=== PATIENT | female | born 1945 | race Caucasian/White ===

== ENCOUNTER 2018-01-25 07:26 | Emergency (ER) | payer OTHER ==
[~2018-01-25] VITALS: Ht 152.4 cm; Wt 73.9 kg
[~2018-01-25 07:26] MED LIST: ASPIR 8181 MG PO; CALCIUM PO; CIPROFLOXACIN 0.2% OT; COZAAR100 MG PO; COZAAR50 MG PO; FUROSEMIDE20 MG PO; HYDRALAZINE HY100 MG PO; HYDRALAZINE HYD50 MG PO; K10 PO; KEFLEX500 MG PO; KLOR-CON M2020 MEQ PO; LASIX20 MG PO; LEVOTHYROXIN0.025 M2 PO; MAGNE PO; METOPROLOL SUCC50 M2 PO; OMEPRAZOLE40 M1 PO; SIMVASTATIN20 M1 PO; SYNTHROID0.112 MG PO; TOP50 PO; VITAMIN B121000 MCG PO; ZOLOFT25 MG PO
[2018-01-25 07:30] VITALS: Ht 152.4 cm; Wt 73.9 kg
[2018-01-25 09:24] VITALS: BP 193/74
== END 2018-01-25 09:24 | disposition home or self-care (01) ==
LOC: ED 07:26
DX: R51 Headache (principal); I11.0 Hypertensive heart disease with heart failure; I50.9 Heart failure, unspecified; Z86.73 Personal history of transient ischemic attack (TIA), and cerebral infarction without residual deficits
CPT/HCPCS: J0780; J1885

== ENCOUNTER 2018-04-11 16:02 | Emergency (ER) | payer OTHER ==
[~2018-04-11] VITALS: Ht 152.4 cm; Wt 71.2 kg
[2018-04-11 16:07] VITALS: BP 176/108; Ht 152.4 cm; Wt 71.2 kg
== END 2018-04-11 16:52 | disposition home or self-care (01) ==
LOC: ED 16:02
DX: K04.7 Periapical abscess without sinus (principal); I11.0 Hypertensive heart disease with heart failure; I50.9 Heart failure, unspecified; Z86.73 Personal history of transient ischemic attack (TIA), and cerebral infarction without residual deficits; Z98.61 Coronary angioplasty status; Z98.890 Other specified postprocedural states

== ENCOUNTER 2018-12-23 09:44 | Emergency (ER) | payer OTHER ==
[~2018-12-23] VITALS: Ht 152.4 cm; Wt 74.1 kg
[2018-12-23 09:47] VITALS: Ht 152.4 cm; Wt 74.1 kg
[2018-12-23 11:13] VITALS: BP 189/94
== END 2018-12-23 11:28 | disposition home or self-care (01) ==
LOC: ED 09:44
DX: M25.561 Pain in right knee (principal); I50.9 Heart failure, unspecified; I11.0 Hypertensive heart disease with heart failure
CPT/HCPCS: J1885

== ENCOUNTER 2018-12-25 09:25 | Emergency (ER) | payer OTHER ==
[~2018-12-25] VITALS: Ht 152.4 cm; Wt 73.5 kg
[2018-12-25 09:32] VITALS: Ht 152.4 cm; Wt 73.5 kg
[2018-12-25 11:58] VITALS: BP 155/79
== END 2018-12-25 11:59 | disposition home or self-care (01) ==
LOC: ED 09:25
DX: M25.561 Pain in right knee (principal); I11.0 Hypertensive heart disease with heart failure; I50.9 Heart failure, unspecified; Z86.73 Personal history of transient ischemic attack (TIA), and cerebral infarction without residual deficits; Z98.890 Other specified postprocedural states

== ENCOUNTER 2019-01-24 13:53 | Inpatient (IN) | payer OTHER ==
[~2019-01-24] VITALS: Ht 152.4 cm; Wt 71.2 kg
[~2019-01-24 13:53] MED LIST changes: -HYDRALAZINE HYD50 MG PO
[2019-01-24 14:00] VITALS: Ht 152.4 cm; Wt 71.2 kg
--- NOTE | 2019-01-24 14:23 | NUR ---
PT BROUGHT IN BY [facility] FOR COMPLAINT OF GENERALIZED WEAKNESS AND DECREASED APPEITITE. PT HAD FALL APPROX 1 MO AGO RESULTING IN HUMERUS HEAD FX OF R SIDE. PT WAS SENT TO [facility] FOR APPROX 23 DAYS. PER PT. REHAB "[place]" STATES BP WAS ELEVATED WHILE IN REHAB AND PT WAS GIVEN A "COCKTAIL OF DRUGS" PT WAS DC'D FROM [facility] 3 DAYS AGO. STATES PT HAS NOT WANTED TO EAT OR DRINK. "SHE WILL ONLY EAT A SLICE OF FRUIT AND THATS NOT ENOUGH CALORIES" PT REFUSES MOST FOOD AND WATER. PT HAS ALSO BECOME MORE WEAK. SURGERY WAS NOT REQUIRED AT FX SITE. PT CURRENLTY AWAKE AND ALERT. BREATHING EVEN UNLABORED. NON AMBULATORY AT THIS TIME. PT PLACED ON CM. IV STARTED TO L HAND. AT BEDSIDE. CONTINUE TO MONITOR.
[2019-01-24 15:19] LABS: BASOPHIL % 0.7 % (0-2); PLATELET COUNT 256 x10^3mcL (130-400); RED CELL DISTRIBUTION WIDTH 14.3 % (11.5-14.5)
[2019-01-24 15:51] LABS: ALBUMIN 3.9 g/dL (3.4-5.0); ALKALINE PHOSPHATASE 122 U/L (46-116); ALT/SGPT 28 U/L (14-59); AST/SGOT 21 U/L (15-37); BILIRUBIN TOTAL 0.5 mg/dL (0.20-1.00); CALCIUM 9.5 mg/dL (8.5-10.1); CARBON DIOXIDE 16.9 mmol/L (21-32); CHLORIDE SERUM 101 mmol/L (98-107); GLUCOSE SERUM 124 mg/dL (74-106); MAGNESIUM 3.2 mg/dL (1.8-2.4); POTASSIUM SERUM 5.3 mmol/L (3.5-5.1); SODIUM SERUM 134 mmol/L (136-145)
[2019-01-24 15:55] LABS: CHOLESTEROL 358 mg/dL (<200); CREATININE SERUM 4.3 mg/dL (0.6-1.0); HDL CHOLESTEROL 31 mg/dL (40-60); TOTAL PROTEIN, SERUM 8.5 g/dL (6.4-8.2)
--- NOTE | 2019-01-24 16:21 | NUR ---
RESTING COMFORTABLY ON GURNEY .BREATHING EVEN UNLABORED. NO DISTRESS. PT WAS ABLE TO EAT SINGLE CONTAINER OF VANILLA PUDDING ASSISTED BY . AWAKE AND ALERT AND ORIENTED.
[2019-01-24 16:35] LABS: microscopic required? YES; urine erythrocyte 1+ (NEGATIVE)
[2019-01-24] MEDS ORDERED: PANTOPRAZOLE SO40 M1 PO (17:05)
[2019-01-24] MEDS ORDERED: MOM PO (17:06)
[2019-01-24] MEDS ORDERED: METOPROLOL SUCC50 M2 PO (17:06)
[2019-01-24] MEDS ORDERED: MAXZIDE-251 TAB PO (17:06)
[2019-01-24] MEDS ORDERED: LOV40I SQ (17:07)
[2019-01-24] MEDS ORDERED: ZOLOFT25 MG PO (17:07)
[2019-01-24] MEDS ORDERED: FERROUS SULFAT325 M2 PO (17:07)
[2019-01-24] MEDS ORDERED: ASPIR LOW81 MG PO (17:07)
[2019-01-24] MEDS ORDERED: COZAAR100 MG PO (17:07)
[2019-01-24] MEDS ORDERED: CATAPRES0.1 MG PO (17:08)
[2019-01-24] MEDS ORDERED: ZOF4 PO (17:08)
--- NOTE | 2019-01-24 18:16 | NUR ---
RECEIVED PATIENT FROM ED VIA [facility] ACCOMPANIED BY EMT AND ALEXANDRA. PATIENT IS A/O X4, TRANSFERED FROM RMAPLE SHADE TO BED AND MADE COMFORTABLE. IV TO LH INTACT AND PATENT. PATIENT HAS HX OF FALL 1 MONTH AGO WITH RIGHT HUMERAL NECK FRACTURE, RUE IN SLING. PATIENT DENIES ANY PAIN. VSS. PATIENT AND ORIENTED TO ROOM. INSTRUTED TO CALL FOR ASSISTANCE IF NEEDED. SAFETY PRECAUTIONS MAINTAINED. WILL ENDORSE CARE TO ONCOMING NURSE.
[2019-01-24 18:33] VITALS: BP 124/97
--- NOTE | 2019-01-24 19:27 | NUR ---
REPORT GIVEN TO STERLING GOODWIN, ALL QUESTIONS AND CONCERNS ADDRESSE, ALL CARES ENDORSED.
--- NOTE | 2019-01-24 19:50 | NUR ---
RECEIVED REPORT FROM DAY SHIFT RN. PT RESTING IN BED. AA&O X4. NO SOB ON ROOM AIR. NO C/O PAIN. NO DISTRESS NOTED. IV TO LEFT HAND, INTACT. RIGHT ARM SLING NOTED. SAFETY MEASURES IN PLACE. BED IN LOWEST POSITION. SIDE RAILS UP X2. INSTRUCTED PT TO USE THE CALL LIGHT FOR ASSISTANCE. CALL LIGHT WITHIN REACH.
[2019-01-24 20:57] VITALS: BP 176/64
--- NOTE | 2019-01-24 22:51 | NUR ---
PT DC TO HOME. PICKED UP BY FAMILY. NO SOB ON ROOM AIR. NO C/O CHEST PAIN. NO DISTRESS NOTED. TELE#1 REMOVED AND RETURNED TO HUMAN RESOURCES DIRECTOR. DC IV, CATHETER INTACT. NO BLEEDING. DISCHARGE PAPER/INSTRUCTIONS EXPLAINED AND GIVEN TO PT.
--- NOTE | 2019-01-24 22:58 | NUR ---
BP 186/53 HR 36; K 5.3; PHOS 7.0. REPORTED TO DR MEDINA. NEW ORDERS: VASOTEC, DC METOPROLOL, CHANGE FROM MED SURG TO TELE, AM LABS (CBC, CHEM7, MG, PHOS).
[2019-01-25 05:46] VITALS: BP 136/53
[2019-01-25 06:23] LABS: BASOPHIL % 0.3 % (0-2); PLATELET COUNT 200 x10^3mcL (130-400); RED CELL DISTRIBUTION WIDTH 14.2 % (11.5-14.5)
[2019-01-25 06:47] LABS: ALBUMIN 3.4 g/dL (3.4-5.0); ALKALINE PHOSPHATASE 111 U/L (46-116); ALT/SGPT 20 U/L (14-59); AST/SGOT 19 U/L (15-37); BILIRUBIN TOTAL 0.49 mg/dL (0.20-1.00); CALCIUM 8.9 mg/dL (8.5-10.1); CARBON DIOXIDE 16.3 mmol/L (21-32); CHLORIDE SERUM 108 mmol/L (98-107); CREATININE SERUM 3.3 mg/dL (0.6-1.0); GLUCOSE SERUM 91 mg/dL (74-106); MAGNESIUM 2.4 mg/dL (1.8-2.4); PHOSPHOROUS 5.5 mg/dL (2.5-4.9); POTASSIUM SERUM 4.7 mmol/L (3.5-5.1); SODIUM SERUM 142 mmol/L (136-145); TOTAL PROTEIN, SERUM 7.3 g/dL (6.4-8.2)
--- NOTE | 2019-01-25 07:35 | NUR ---
PT RESTED AT INTERVALS DURING SHIFT. NO SOB ON ROOM AIR. NO C/O PAIN. NO DISTRESS NOTED. SAFETY MEASURES MAINTAINED. CALL LIGHT WITHIN REACH. ENDORSED CARE TO ONCOMING RN.
[2019-01-25 07:45] VITALS: BP 149/68
--- NOTE | 2019-01-25 08:00 | NUR ---
LETHARGIC AND ORIENTED. VERY SOFT SPOKEN. ANSWERS ALL QUESTIONS APPROPRIATELY. BREATHING FREELY ON RA. RT UPPER EXT NOT IN SLING AT THIS TIME. DENIES PAIN OR NEED FOR PAIN MED AT THIS TIME. POOR APPETITE. DID NOT EAT BREAKFAST. LR INFUSING 80 CC HOUR TO LEFT HAND. RECEIVED HEPARIN SQ. ASSIST W BRP AND ADL'S. CALL LIGHT WITHIN REACH.
--- NOTE | 2019-01-25 09:45 | NUR ---
SPOKE WITH DR. PIZANO RE: PT S LAB VALUES AND IV FLUIDS.
--- NOTE | 2019-01-25 11:10 | NUR ---
P.T. NOTED PT LEFT WRIST BEGINNING TO SWELL. IV BEGINNING TO INFILTRATE. IV INFUSION STOPPED AND PHOTO TAKEN. WILL START NEW IV. AT BEDSIDE.
[2019-01-25 12:42] VITALS: BP 135/56
--- NOTE | 2019-01-25 13:33 | NUR ---
Initial Nutrition Assessment: 226T/A VINCENT NAVASITA IA HR Dx: dehydration, renal failure PMHx: hypertension, CVA, CHF, and ESRD PSHx: open heart surgery 2009 Labs: BUN 139H, CREAT 3.3H, P 5.5H Meds: Ativan, Lipitor, Zofran, heparin Diet: Renal PO Intake: (01/25) Breakfast 0% Ht: 152.4 cm (60") Wt: 71.2 kg (156#) BMI: 30.7 kg/m2 Bed scale: 71.2 kg IBW: 100# (45 kg) %IBW: 156 UBW: not aware Age: 73/F Food Allergies: Shellfish Skin: ecchymosis to R humeral area Carmine: 18 Edema: none GI: Last BM: not noted since admission Trigger: poor PO >3d Per H&P, Pt is a 73-year-old female with a history of hypertension, CVA, CHF, and ESRD presenting with persistent right shoulder pain for the last one month. The patient's reports that the patient sustained a fractured right shoulder last month status-post mechanical fall and was discharged to [facility] for rehabilitation for 23 days where she was regularly given [place] for pain management. They are complaining of associated nausea, constipation, and decreased PO and oral fluid intake for the last 3 days. Per assessment, pt has KARYN on CKD due to dehydration RDN Visit (01/25): Patient appeared lethargic. She said that her appetite is poor and is willing to try Nepro oral nutrition supplement. Patient's was at bedside and said that patient has not been eating well prior to admission. Problem with: N/V/D/C: feeling nauseous this morning Problems with: Chewing/Swallowing: none Current appetite: poor Recent wt change: patient not aware %wt change: unable to access Vitamin/Supplement use: B12, D3 Special diet at home: Regular, per patient's , they tried [employer]ystem's diet Physical activity: very weak to walk even prior to admission Nutrition education given: Patient has very poor PO, so emphasis of adequate nutrition was emphasized. Food-drug interactions: heparin- consistent intake of vitamin K, Lipitor- avoid grapefruit Education given: no Estimated Nutritional Needs Based on adjusted body weight 52 kg Energy: 3694-8097 kcal/d (25-30 kcal/kg) Protein: 42-62 g/d (0.8-1.2 g/kg) - KARYN Fluid: 6698-4846 ml/d (1 ml/kcal) or per doctor Nutrition Diagnosis 1. Inadequate oral intake related to poor appetite as evidenced by documented PO 0% and self- reported poor PO. Intervention 1. Recommend Nepro BID w/ meals. 2. Recommend continuing renal diet. Monitor/Evaluate Goal: PO intake at least 75% of estimated needs Monitor: PO intake, Labs, GI function F/U in 2-3 days as high risk 01/27-
--- NOTE | 2019-01-25 13:34 | NUR ---
1. Recommend Nepro BID w/ meals. 2. Recommend continuing renal diet.
[2019-01-25 17:54] VITALS: BP 137/51
--- NOTE | 2019-01-25 18:34 | NUR ---
RESTING QUIETLY. HAS DENIED ANY NEED FOR PAIN MED THIS SHIFT. REQUIRES MUCH ASSIST PT IS WEAK AND LIMITED IN HER RIGHT UPPER EXT. SEEN BY P.T. TODAY. DR. IVY CONSULT WILL SEE PT TOMORROW. 1/2 NS INFUSING 100 CC HOUR TO LEFT WRIST. CALL LIGHT WITHIN REACH. BED IN LOW POSITION, HOB ELEVATED 45 DEGREES.SITTING UP FOR DINNER.
--- NOTE | 2019-01-25 20:31 | NUR ---
PATIENT RECEIVED AWAKE, ALERT, ORIENTED X4 IN BED. RESPIRATION EVEN AND UNLABORED, ON ROOM AIR. ONGOING 1/2 NS AT 100 CC/HR INFUSING WELL AT THE LEFT WRIST. POSITIVE RIGHT HUMERAL NECK FRACTURE. NON-COMPLIANT WITH RIGHT ARM SLING. DENIES PAIN AT THIS TIME. AMBULATES WITH ASSIST, USES WHEELCHAIR AT HOME. VOIDING FREELY WITHOUT DIFFICULTY. ECCHYMOSIS TO RUE. ON TELE #28. WILL CONTINUE TO MONITOR.
[2019-01-25 21:58] VITALS: BP 144/85
[2019-01-26 05:44] VITALS: BP 153/61
--- NOTE | 2019-01-26 06:06 | NUR ---
PATIENT RESTING IN BED. RESPIRATION EVEN AND UNLABORED, ON ROOM AIR. IV SITE NO SIGN OF INFILTRATION. INCONTINENT OF URINE. KEPT CLEAN AND DRY. ASSISTED WITH NEEDS. SAFETY OBSERVED. PLACED BED IN THE LOWEST POSITION. PLACED CALL LIGHT WITHIN REACH AT ALL TIMES.
[2019-01-26 06:19] LABS: BASOPHIL % 0.6 % (0-2); PLATELET COUNT 148 x10^3mcL (130-400); RED CELL DISTRIBUTION WIDTH 13.8 % (11.5-14.5)
[2019-01-26 07:09] LABS: ALKALINE PHOSPHATASE 107 U/L (46-116); ALT/SGPT 16 U/L (14-59); AST/SGOT 19 U/L (15-37); BILIRUBIN TOTAL 0.39 mg/dL (0.20-1.00); CALCIUM 8.6 mg/dL (8.5-10.1); CARBON DIOXIDE 18.8 mmol/L (21-32); CHLORIDE SERUM 107 mmol/L (98-107); CREATININE SERUM 2.6 mg/dL (0.6-1.0); GLUCOSE SERUM 96 mg/dL (74-106); MAGNESIUM 2.2 mg/dL (1.8-2.4); PHOSPHOROUS 3.4 mg/dL (2.5-4.9); POTASSIUM SERUM 4.1 mmol/L (3.5-5.1); SODIUM SERUM 140 mmol/L (136-145); TOTAL PROTEIN, SERUM 6.4 g/dL (6.4-8.2)
[2019-01-26 07:17] LABS: ALBUMIN 2.9 g/dL (3.4-5.0)
--- NOTE | 2019-01-26 08:00 | NUR ---
ALERT AND ORIENTED. REMAINS VERY WEAK AND REQUIRES ASSIST WITH ALL ADL'S. USES WHEELCHAIR AT HOME. ABLE TO TURN AND REPOSITION SELF CHOOSES NOT TO. SPITTING UP. NAUSEA NOT VOMITING. ADMIN ZOFRAN IV. POOR APPETITE WITH BREAKFAST. CaLL LIGHT WITHIN REACH. WEARING SLING RT UPPER EXT. DENIES ANY PAIN.
[2019-01-26 09:48] VITALS: BP 180/67
[2019-01-26 09:58] VITALS: BP 173/61
[2019-01-26 12:45] VITALS: BP 181/70
[2019-01-26 17:18] VITALS: BP 149/89
--- NOTE | 2019-01-26 17:48 | NUR ---
RECEIVED ORDER FOR EKG DUE TO PT HEART RATE-154, CALLED R.T. TO DO EKG STAT. DOUG GOODWIN ASSIGNED TO THIS PT MADE AWARE OF ABOVE. DOUG GOODWIN HAD RECEIVED ORDER TO ADMINISTER METOPROLOL IV TO PT. WILL MONITOR.
--- NOTE | 2019-01-26 19:21 | NUR ---
A-FIB WITH RVR TO TELE #30, HR 140S. PT CONVERTED TO NSR, HR 71. DENIES CP/PRESSURE AT THIS TIME, WILL CONTINUE TO MONITOR.
[2019-01-26 19:37] VITALS: BP 125/62
--- NOTE | 2019-01-26 19:37 | NUR ---
RECEIVED REPORT FROM AM NURSE, PT IN BED WATCHING TV. PT AAOX4 ABLE TO MAKE NEEDS KNOWN. ON TELE #30, DENIES CP/PRESSURE AT THIS TIME. PALPABLE PULSES TO BLE AND BUE, EDEMA TO BLE NOTED. BREATHING EVEN AND UNLABORED ON RA, LUNG SOUNDS CTA, NO RESP DISTRESS NOTED. ABD SOFT AND NONDISTENDED, ACTIVE BOWEL SOUNDS X4 QUAD, DENIES N/V AT THIS TIME. INCONTINENT TO URINE AND STOOL. GENERALIZED WEAKNESS, BEDFAST AT THIS TIME. ECHYMOSIS TO LUE NOTED. ARM SLING TO LUE IN PLACE. IV TO LFA INFUSING WELL, SITE FREE FROM REDNESS AND SWELLING. NO ACUTE DISTRESS NOTED. BEST AT LOWEST SETTING, CALL LIGHT WITHING REACH, WILL CONTINUE MONITOR.
--- NOTE | 2019-01-26 19:58 | NUR ---
PT HAS BEEN QUIET ENTIRE SHIFT. SOFT SPOKEN. HAS DENIED ANY PAIN. SAYS PT FELL AND BROKE HER RT HUMERUS APPROX [address] IVY SAW PT AND SAID WEARING SLING TO RT UPPER EXT WOULD BE SUFFICIENT AND PT COULD SEE IN [facility] OFFICE OUT PT. CONTINUES ON 08/10 NS 100 CC HOUR. POOR APPETITE. REQUIRES ASSIST WITH ALL ADL'S. INCONTINENT. CALL LIGHT WITHIN REACH.
--- NOTE | 2019-01-26 20:30 | NUR ---
PT HAD INCONTINENT EPISODE BM, LOOSE YELLOWISH STOOL. SUMANTH CARE RENDERED.
--- NOTE | 2019-01-27 00:10 | NUR ---
IV TO LFA FOUND RED, IV CATH REMOVED, CATH INTACT. NEW IV RESTARTED TO RH, INFUSING WELL, RECONNECTED TO IV FLUIDS. WILL CONTINUE MONITOR.
--- NOTE | 2019-01-27 02:00 | NUR ---
PT SLEEPING COMFORTABLY IN BED. BREATHING EVEN AND UNLABORED ON RA, NO SIGNS OF ACUTE DISTRESS NOTED. BED AT LOWEST SETTING, CALL LIGHT WITHING REACH, IV FLUIDS INFUSING WELL TO RH. WILL CONTINUE TO MONITOR.
--- NOTE | 2019-01-27 05:02 | NUR ---
PT SLEPT AT INTERVALS THROUGHOUT NIGHT. PT DENIES CP/PRESSURE. BREATHING EVEN AND UNLABORED ON RA. NO SIGNS OF RESP DISTRESS NOTED. IV TO RH INFUSING WELL. ALL NEEDS ASSESSED AND ATTENDED TO. NO ACUTE DISTRESS NOTED. BED AT LOWEST SETTING, CALL LIGHT WITHING REACH. WILL ENDORSE CARE TO AM NURSE.
[2019-01-27 06:40] VITALS: BP 154/68
[2019-01-27 07:38] LABS: CALCIUM 8.8 mg/dL (8.5-10.1); CARBON DIOXIDE 17.6 mmol/L (21-32); CHLORIDE SERUM 105 mmol/L (98-107); CREATININE SERUM 2.2 mg/dL (0.6-1.0); GLUCOSE SERUM 89 mg/dL (74-106); MAGNESIUM 1.8 mg/dL (1.8-2.4); PHOSPHOROUS 2.7 mg/dL (2.5-4.9); SODIUM SERUM 138 mmol/L (136-145)
--- NOTE | 2019-01-27 08:00 | NUR ---
RECEIVED PATIENT A/A/OX3; SPEECH CLEAR. TELE#30, SB W/ RBBB; HR = 58/MIN NOW. DENIED CHEST PAIN. NO RESP DSITRESS ON RA. BREATHING SOUND CLEAR MAYI. C/O POOR APPETITE. REFUSED BREAKFAST. DRONK TEA ONLY. SLING TO RUE FOR RT HUMORAL NECK FX AFTER FELL AT HOME. BRUISE TO RUE NOTED. NO OPENED WOOUND. IVF OF 1/2NS 100CC/HR. IV SITE TO R HAND INTACT. PERCOCET GIVEN AT 0540 BY NOC NURSE. DENIED PAIN NOW. CALL LIGHT IN REACH.
[2019-01-27 09:30] VITALS: BP 156/60
--- NOTE | 2019-01-27 10:23 | NUR ---
DR. DAVIS CAME TO SEE PATIENT. NEW ORDER WRITTEN.
--- NOTE | 2019-01-27 12:01 | NUR ---
Follow-up Nutrition Assessment: T/A MASHA NAVAS FU HR Dx: dehydration, renal failure PMHx: hypertension, CVA, CHF, and ESRD Labs: (01/27) BUN 74H, CREAT 2.2H Meds: Ativan, Lipitor, Zofran, heparin Diet: Renal PO Intake: (01/26) dinner 40% Weights: (01/24) 71.2 kg Skin: ecchymosis HEMANT Carmine: 18 I/Os: 2320/ Output not documented Edema: BLE edema GI: active bowel sounds Last BM: 01/26 RDN Visit (01/27): Patient appeared weak. Patient said that she is having N/V and today is not a good day for her so she hasn't consumed any breakfast. However patient said that she drinks Nepro ONS. Yesterday, Nepro ONS was increased from BID to TID. Estimated Nutritional Needs Based on adjusted body weight 52 kg Energy: 3381-2280 kcal/d (25-30 kcal/kg) Protein: 42-62 g/d (0.8-1.2 g/kg) - KARYN Fluid: 1614-1996 ml/d (1 ml/kcal) or per doctor Nutrition Diagnosis 1.Inadequate oral intake related to poor appetite as evidenced by documented PO 0% and self- reported poor PO.(ongoing- slightly improving) Intervention 1. Recommend continuing renal diet w/Nepro TID. Monitor/Evaluate Goal: Have pt meet at least 75% of estimated needs Monitor: PO intake, Labs, GI function F/U in 3-5 days as moderate risk 01/30-
--- NOTE | 2019-01-27 12:01 | NUR ---
1. Recommend continuing renal diet w/Nepro TID.
[2019-01-27 12:54] VITALS: BP 136/56
[2019-01-27 17:18] VITALS: BP 129/60
--- NOTE | 2019-01-27 19:00 | NUR ---
CONDITION IMPROVING. APPETITE IMPROVED. TOLERATED RENAL DIET LUNCH AND DINNER. NO N/V. LAXITIVES GIVEN. NO BM THIS SHIFT. URINE INCONT. LARGE AMOUNT. PAD CHANGED X5. NON BLEACHABLE REDNESS TO PERIRECTAL AREA. Z GUARD APPLIED. ENDORSED CARE TO NOC NURSE.
--- NOTE | 2019-01-27 19:00 | NUR ---
RECEIVED PT LAYING IN BED, NO ACUTE DISTRESS OBSERVED, PT DENIES PAIN OR DISCOMFORT. AA/OX3, ABLE TO MAKE NEEDS KNOWN, SPEECH SOFT AND APPRORPIATE. SINUS CARIL WITH BBB TO TELE #30, DENIES CP OR PRESSURE, HR 59. PULSES PRESENT AND EQUAL THROUGHOUT, +1 EDEMA TO BLE. BREATHING ON RA, EVEN AND UNLABORED, NO SOB OR DYSPNEA OBSERVED. ABD ROUND AND SOFT WITH ACTIVE BOWEL SOUNDS, DENIES N/V/D. PT WAS HAVING DECREASED APPEITITE, DOING BETTER WITH MEALS TODAY. INCONTINENT OF STOOL AND URINE, WILL PROVIDE PERICARE NEEDED. GENERALIZED WEAKNESS, AMBULATORY WITH ASSIST, UP WITH P.T. RUE IN SLING, HX OF HUMERUS FX, ABLE TO TURN AND REPOSITION SELF IN BED. ECCHYMOSIS TO RUE, ERYTHEMA TO SUMANTH RECTAL AREA, Z GAURD APPLIED. IV TO RH IN PLACE, DRY, PATENT, INTACT, AND INFUSING IVF WELL, NO PAIN, REDNESS OR SWELLING NOTED. COMFORT AND SAFETY MEASURES IN PLACE. BED IN LOWEST POSITION WITH SIDE RAILS UPX2 AND BED ALARM ACTIVATED. ALL NEEDS ASSESSED AND ATTENDED TO. CALL LIGHT WITHIN REACH. WILL CONTINUE TO MONITOR
[2019-01-27 20:46] VITALS: BP 148/50
--- NOTE | 2019-01-28 00:45 | NUR ---
PT LAYING IN BED, AWAKE, DENIES PAIN OR DISCOMFORT, NO ACUTE DISTRESS OBSERVED. CALL LIGHT WITHIN REACH. WILL CONTINUE TO MONITOR
--- NOTE | 2019-01-28 04:46 | NUR ---
NO SIGNIFICANT CHANGES TO REPORT, PT COMPLIED WITH NURSING CARE THROUGHOUT THE SHIFT WITH NO ACUTE EVENTS OVERNIGHT. NO ACUTE DISTRESS NOTED AT THIS TIME, PT LAYING IN BED, BREATHING EVEN AND UNLABORED, AROUSABLE TO VERBAL STIMULI. COMFORT AND SAFETY MEASURES MAINTAINED. ALL NEEDS ASSESSED AND ATTENDED TO. CALL LIGHT WITHIN REACH. WILL CONTINUE TO MONITOR AND ENDORSE CARE TO DAY SHIFT NURSE.
--- NOTE | 2019-01-28 05:30 | NUR ---
PT'S B/P THIS AM 194/67 MAP 109. PT GIVEN PRN VASOTEC IVP PER EMAR. NO TELE RHYTHM CHANGES NOTED. PT DENIES [place], DIZZINESS, PAIN OR DISCOMFORT. CALL LIGHT WITHIN REACH. WILL CONTINUE TO MONITOR
[2019-01-28 06:16] VITALS: BP 165/60
--- NOTE | 2019-01-28 06:18 | NUR ---
PT COMPLIED WITH NURSING CARE THROUGHOUT THE SHIFT, SLEPT WELL. NO ACUTE DISTRESS NOTED AT THIS TIME, PT LAYING IN BED, BREATHING EVEN AND UNLABORED, AROUSABLE TO VERBAL STIMULI. COMFORT AND SAFETY MEASURES MAINTAINED. ALL NEEDS ASSESSED AND ATTENDED TO. CALL LIGHT WITHIN REACH. WILL CONTINUE TO MONITOR AND ENDORSE CARE TO DAY SHIFT NURSE.
[2019-01-28 06:20] LABS: BASOPHIL % 0.6 % (0-2); RED CELL DISTRIBUTION WIDTH 13.8 % (11.5-14.5)
[2019-01-28 06:30] LABS: ALBUMIN 2.8 g/dL (3.4-5.0); ALKALINE PHOSPHATASE 91 U/L (46-116); ALT/SGPT 17 U/L (14-59); AST/SGOT 22 U/L (15-37); BILIRUBIN TOTAL 0.41 mg/dL (0.20-1.00); CALCIUM 8.4 mg/dL (8.5-10.1); CARBON DIOXIDE 19.4 mmol/L (21-32); CHLORIDE SERUM 105 mmol/L (98-107); CREATININE SERUM 1.8 mg/dL (0.6-1.0); GLUCOSE SERUM 99 mg/dL (74-106); MAGNESIUM 1.5 mg/dL (1.8-2.4); SODIUM SERUM 138 mmol/L (136-145); TOTAL PROTEIN, SERUM 6.1 g/dL (6.4-8.2)
--- NOTE | 2019-01-28 06:42 | NUR ---
PT VOMITTING INTO EMESIS BAG AND C/O NAUSEA. MEDICATED WITH PRN ZOFRAN PER EMAR
[2019-01-28 06:49] LABS: CALCIUM 8.4 mg/dL (8.5-10.1); CARBON DIOXIDE 19.2 mmol/L (21-32); CHLORIDE SERUM 105 mmol/L (98-107); CREATININE SERUM 1.8 mg/dL (0.6-1.0); GLUCOSE SERUM 98 mg/dL (74-106); PHOSPHOROUS 2.4 mg/dL (2.5-4.9); SODIUM SERUM 137 mmol/L (136-145)
[2019-01-28 07:11] LABS: PLATELET COUNT 128 x10^3mcL (130-400)
--- NOTE | 2019-01-28 07:40 | NUR ---
PATIENT RESTING IN BED, NO ACUTE DISTRESS NOTED AT THIS TIME. TELE MONITOR APPLIED, PATIENT DENIES PAIN. PATIENT C/O OF NAUSEA, PREVIOUS NURSE MEDICATED PATIETN WITH ZOFRAN, WILL CONTINUE TO MONITOR PATIENT. PATIENT IS INCONTINENT AT TIME. GENERALIZED WEAKNESS NOTED, SLING APPLIED TO RUE. 1/2 NS IV INFUSING TO RIGHT HAND, IV SITE CDI & PATENT, NO S/S OF INFILTRATION. CALL LIGHT WITHIN REACH, BED IN LOW POSITION FOR SAFETY PRECAUTION.
[2019-01-28 09:00] VITALS: BP 133/62
--- NOTE | 2019-01-28 10:12 | NUR ---
DR MEDINA AWARE PATIENT MAG WAS 1.5, DR MEDINA GAVE TORB FOR MAG OX 400MG PO ONCE. WILL CARRY OUT TORB AT THIS TIME.
[2019-01-28 16:00] VITALS: BP 135/61
--- NOTE | 2019-01-28 17:20 | NUR ---
PATIENT IS SITTING UP IN BED, NO ACUTE DISTRESS NOTED. PATIENT DENIES PAIN AT THIS TIME. PATIENT IS SITTING UP EATTING, FAMILY AT BEDSIDE ENCOURAGING PATIENT TO EAT. CALL LIGHT WITHIN REACH, BED IN LOW POSITION. WILL CONTINUE TO MONIOTR PATIENT.
--- NOTE | 2019-01-28 18:45 | NUR ---
NO ACUTE CHANGES THROUGH OUT SHIFT, PATIENT IS STABLE. DENIES PAIN AT THIS TIME. SLING APPLIED TO RUE. 1/2 NS INFUSING TO RIGHT HAND AT 75ML/HR, IV CDI & PATENT, NO S/S OF INFILTRATION. CALL LIGHT WITHIN REACH, BED IN LOW POSITION. WILL ENDORSE REPORT TO NIGHT NURSE.
--- NOTE | 2019-01-28 19:40 | NUR ---
RECEIVED REPORT FROM DAY SHIFT RN. PT RESTING IN BED. AA&O X4. NO SOB ON ROOM AIR. NO C/O PAIN. NO DISTRESS NOTED. IV TO RIGHT HAND, INTACT. SLING TO RUE NOTED. SAFETY MEASURES IN PLACE. BED IN LOWEST POSITION. SIDE RAILS UP X2. CALL LIGHT WITHIN REACH.
[2019-01-28 21:11] VITALS: BP 99/48
[2019-01-29 00:15] VITALS: BP 152/51
[2019-01-29 05:51] VITALS: BP 149/67
--- NOTE | 2019-01-29 07:35 | NUR ---
PATIENT RESTING IN BED, NO ACUTE DISTRESS NOTED. DENIES SOB, ON ROOM AIR. TELE MONITOR IN PLACE. GENERLAIZED WEAKNESS NOTED, SLOW GAIT NOTED. SLING APPLIED TO RUE. PATIENT DENIES ANY PAIN AT THIS TIME. DENIES NAUSEA AND VOMITTING. PATIENT ON 08/10 NS AT 75 ML/HR TO RIGHT HAND, IV SITE CDI & PATENT, NO S/S OF INFILTRATION. CALL LIGHT WITHIN REACH, BED IN LOW POSITION. WILL CONTINUE TO MONITOR PATIENT.
[2019-01-29 07:56] LABS: BASOPHIL % 0.4 % (0-2); RED CELL DISTRIBUTION WIDTH 13.7 % (11.5-14.5)
[2019-01-29 08:00] LABS: PLATELET COUNT 108 x10^3mcL (130-400)
[2019-01-29 08:32] LABS: CALCIUM 8.3 mg/dL (8.5-10.1); CARBON DIOXIDE 18.2 mmol/L (21-32); CHLORIDE SERUM 105 mmol/L (98-107); CREATININE SERUM 1.8 mg/dL (0.6-1.0); GLUCOSE SERUM 99 mg/dL (74-106); POTASSIUM SERUM 4.5 mmol/L (3.5-5.1); SODIUM SERUM 136 mmol/L (136-145)
[2019-01-29 09:00] VITALS: BP 153/68
[2019-01-29 09:38] LABS: MAGNESIUM 1.4 mg/dL (1.8-2.4); PHOSPHOROUS 2.5 mg/dL (2.5-4.9)
[2019-01-29 12:40] VITALS: BP 168/66
--- NOTE | 2019-01-29 13:17 | NUR ---
DOCTOR CAROL GAVE TELEPHONE ORDER/ READBACK FOR HYDRALAZINE 25MG PO TID. DOCTOR CHANGE AWARE PATIENT MAG WAS 1.4, DR MEDINA GAVE TELEPHONE ORDER FOR MAGNESIUM SULFATE IV 4GM ONCE. DR. MEDINA GAVE VERBAL ORDERS TO DISCONTINUE LOPRESSOR 25MG BID. WILL CARRY OUT TORB ORDERS AT THIS TIME.
[2019-01-29 17:00] VITALS: BP 157/60
[2019-01-29 17:50] VITALS: BP 156/60
--- NOTE | 2019-01-29 19:40 | NUR ---
PATIENT WAS DICHARGE HOME, AT BEDSIDE. NO ACUTE CHANGES THROUGH OUT SHIFT. PATIENT DENIES PAIN. DENIES SOB, PATIENT ON ROOM AIR. IV TO RH REMOVED, CATH IN TACT. TELE & ARMABNDS REMOVED. PATIENT AND RECEIVED COPY OF D/C INSTRUCTIONS, PATIENT AND AGREE WITH POC & D/C INSTRUCTION, INCLUDING MEDICATIONS AND F/U WITH PCP.
--- NOTE | 2019-01-30 08:26 | NUR ---
PHYSICAL THERAPY DAILY NOTES CO-SIGN All documentation done by the Abrasive Coating Machine Operator for 01/30/19 has been reviewed. I agree with the documentation. Reviewed/Co-Signed by: Raiza Horn PT Documentation Done by:LUIS ROME PTA FOR 01/28/19
== END 2019-01-29 19:36 | disposition home or self-care (01) | DRG 559 ==
LOC: ED 13:53 → MU 17:03 → DU 17:03 → MU 18:16 → DU 23:55
PROVIDERS: Emergency Medicine; Internal Medicine; Internal Medicine Nephrology; Internal Medicine Pulmonary Disease; ADMIT Internal Medicine Pulmonary Disease
DX: S42.214D Unspecified nondisplaced fracture of surgical neck of right humerus, subsequent encounter for fracture with routine healing (principal); N18.6 End stage renal disease; I12.0 Hypertensive chronic kidney disease with stage 5 chronic kidney disease or end stage renal disease; N17.9 Acute kidney failure, unspecified; E44.0 Moderate protein-calorie malnutrition; E83.41 Hypermagnesemia; E86.0 Dehydration; Z86.73 Personal history of transient ischemic attack (TIA), and cerebral infarction without residual deficits; W18.39XA Other fall on same level, initial encounter; Y93.89 Activity, other specified; Y92.099 Unspecified place in other non-institutional residence as the place of occurrence of the external cause
CPT/HCPCS: 97110-GP; 97116-GP; 97530-GP; G0378; J1644; J2405; J3475; J3490; J7030; J7050; J7120; Q0092

== ENCOUNTER 2019-08-02 20:38 | Observation (INO) | payer OTHER ==
[~2019-08-02] VITALS: Ht 152.4 cm; Wt 72.6 kg
[~2019-08-02 20:38] MED LIST changes: +ASPIR LOW81 MG PO; +CATAPRES0.1 MG PO; +FERROUS SULFAT325 M2 PO; +LOV40I SQ; +MAXZIDE-251 TAB PO; +MOM PO; +PANTOPRAZOLE SO40 M1 PO; +ZOF4 PO
[2019-08-02 20:41] VITALS: Ht 152.4 cm; Wt 72.6 kg
[2019-08-02 22:05] LABS: BASOPHIL % 0.2 % (0-2); PLATELET COUNT 222 x10^3mcL (130-400); RED CELL DISTRIBUTION WIDTH 14.3 % (11.5-14.5)
[2019-08-02 22:27] LABS: CALCIUM 8.7 mg/dL (8.5-10.1); CARBON DIOXIDE 26.7 mmol/L (21-32); CHLORIDE SERUM 104 mmol/L (98-107); GLUCOSE SERUM 133 mg/dL (74-106); POTASSIUM SERUM 4.3 mmol/L (3.5-5.1); SODIUM SERUM 141 mmol/L (136-145)
[2019-08-02 22:46] LABS: ALBUMIN 3.5 g/dL (3.4-5.0); ALKALINE PHOSPHATASE 139 U/L (46-116); ALT/SGPT 24 U/L (14-59); AST/SGOT 17 U/L (15-37); BILIRUBIN TOTAL 0.3 mg/dL (0.20-1.00); CHOLESTEROL 182 mg/dL (<200); HDL CHOLESTEROL 38 mg/dL (40-60); LIPASE 139 IU/L (73-393); T4(THYROXINE) 8.1 ug/dL (4.7-13.3); TOTAL PROTEIN, SERUM 8.1 g/dL (6.4-8.2)
[2019-08-02 23:21] LABS: UA SPECIFIC GRAVITY 1.025 (1.005-1.035); microscopic required? YES; urine erythrocyte TRACE (NEGATIVE)
[2019-08-02 23:30] LABS: AMPHETAMINE QUAL UR NONE DETECTED (See below)
[2019-08-03 01:11] VITALS: BP 159/57
[2019-08-03 05:44] VITALS: BP 153/46
[2019-08-03 09:26] VITALS: BP 145/38
[2019-08-03 13:55] VITALS: BP 140/56
[2019-08-03 17:47] VITALS: BP 131/55
[2019-08-03] MEDS ORDERED: CIPRO250 MG PO (18:01)
[2019-08-03 18:39] VITALS: BP 131/55
[2019-08-04] MEDS ORDERED: METOPROLOL SUCC50 M2 PO (11:47)
[2019-08-04] MEDS ORDERED: COZAAR100 MG PO (11:48)
[2019-08-04] MEDS ORDERED: SYNTHROID0.088 MG PO (11:48)
[2019-08-04] MEDS ORDERED: LIPI20 PO (11:49)
== END 2019-08-03 19:31 | disposition home or self-care (01) ==
LOC: ED 20:38 → DU 23:37
PROVIDERS: Emergency Medicine; ADMIT Internal Medicine Pulmonary Disease
DX: N39.0 Urinary tract infection, site not specified (principal); E86.9 Volume depletion, unspecified; I13.0 Hypertensive heart and chronic kidney disease with heart failure and stage 1 through stage 4 chronic kidney disease, or unspecified chronic kidney disease; I50.9 Heart failure, unspecified; N18.3 Chronic kidney disease, stage 3 (moderate); E11.22 Type 2 diabetes mellitus with diabetic chronic kidney disease; I25.10 Atherosclerotic heart disease of native coronary artery without angina pectoris; Z86.73 Personal history of transient ischemic attack (TIA), and cerebral infarction without residual deficits; Z23 Encounter for immunization
CPT/HCPCS: 82962; 87804; 90658; 97112-GP; C9113; G0378; G0480; J0696; J1956; J7030; J7060; Q0092

== ENCOUNTER 2019-08-04 11:25 | Emergency (ER) | payer OTHER ==
[~2019-08-04] VITALS: Ht 160 cm; Wt 86.2 kg
[~2019-08-04 11:25] MED LIST changes: +CIPRO250 MG PO
[2019-08-04 11:29] VITALS: Ht 160 cm; Wt 86.2 kg
[2019-08-04] MEDS ORDERED: METOPROLOL SUCC50 M2 PO (11:47)
[2019-08-04] MEDS ORDERED: COZAAR100 MG PO (11:48)
[2019-08-04] MEDS ORDERED: SYNTHROID0.088 MG PO (11:48)
[2019-08-04] MEDS ORDERED: LIPI20 PO (11:49)
[2019-08-04 13:15] LABS: CALCIUM 8.3 mg/dL (8.5-10.1); CARBON DIOXIDE 24.3 mmol/L (21-32); CHLORIDE SERUM 108 mmol/L (98-107); CREATININE SERUM 1.9 mg/dL (0.6-1.0); GLUCOSE SERUM 96 mg/dL (74-106); POTASSIUM SERUM 4.4 mmol/L (3.5-5.1); SODIUM SERUM 142 mmol/L (136-145)
[2019-08-04 13:18] LABS: BASOPHIL % 0.6 % (0-2); PLATELET COUNT 163 x10^3mcL (130-400)
[2019-08-04 13:19] LABS: ALKALINE PHOSPHATASE 97 U/L (46-116); ALT/SGPT 19 U/L (14-59); AST/SGOT 15 U/L (15-37); BILIRUBIN TOTAL 0.4 mg/dL (0.20-1.00); LIPASE 107 IU/L (73-393); RED CELL DISTRIBUTION WIDTH 15.1 % (11.5-14.5)
[2019-08-04 13:20] LABS: ALBUMIN 2.9 g/dL (3.4-5.0)
[2019-08-04 14:14] LABS: microscopic required? YES; urine erythrocyte NEGATIVE (NEGATIVE)
[2019-08-04 16:00] VITALS: BP 152/68
== END 2019-08-04 16:00 | disposition home or self-care (01) ==
LOC: ED 11:25
PROVIDERS: Emergency Medicine
DX: N39.0 Urinary tract infection, site not specified (principal); E46 Unspecified protein-calorie malnutrition; Z95.1 Presence of aortocoronary bypass graft; I10 Essential (primary) hypertension; I45.10 Unspecified right bundle-branch block; Z91.013 Allergy to seafood; Z86.73 Personal history of transient ischemic attack (TIA), and cerebral infarction without residual deficits
CPT/HCPCS: 82962; 83880; J1956; J7030; Q0092

== ENCOUNTER 2019-08-11 05:17 | Emergency (ER) | payer OTHER ==
[~2019-08-11] VITALS: Ht 152.4 cm; Wt 72.6 kg
[~2019-08-11 05:17] MED LIST changes: +LIPI20 PO; +SYNTHROID0.088 MG PO
[2019-08-11 05:24] VITALS: Ht 152.4 cm; Wt 72.6 kg
[2019-08-11 06:11] LABS: BASOPHIL % 0.4 % (0-2); PLATELET COUNT 191 x10^3mcL (130-400)
[2019-08-11 06:18] LABS: CARBON DIOXIDE 24.3 mmol/L (21-32); CHLORIDE SERUM 108 mmol/L (98-107); CREATININE SERUM 1.9 mg/dL (0.6-1.0); GLUCOSE SERUM 106 mg/dL (74-106); POTASSIUM SERUM 3.7 mmol/L (3.5-5.1); SODIUM SERUM 138 mmol/L (136-145)
[2019-08-11 06:21] LABS: RED CELL DISTRIBUTION WIDTH 14.7 % (11.5-14.5)
[2019-08-11 06:23] LABS: ALKALINE PHOSPHATASE 91 U/L (46-116); ALT/SGPT 18 U/L (14-59); AST/SGOT 14 U/L (15-37); BILIRUBIN TOTAL 0.3 mg/dL (0.20-1.00); CHOLESTEROL 138 mg/dL (<200); CHOLESTEROL/HDL RATIO 3.7; HDL CHOLESTEROL 37 mg/dL (40-60); TOTAL PROTEIN, SERUM 6.5 g/dL (6.4-8.2); TRIGLYCERIDES 121 mg/dL (<150)
[2019-08-11 06:33] LABS: ALBUMIN 2.9 g/dL (3.4-5.0)
[2019-08-11 07:26] LABS: UA SPECIFIC GRAVITY 1.025 (1.005-1.035); microscopic required? YES; urine erythrocyte 3+ (NEGATIVE)
[2019-08-11 09:16] VITALS: BP 155/50
== END 2019-08-11 09:16 | disposition home or self-care (01) ==
LOC: ED 05:17
PROVIDERS: Specialist
DX: M54.5 Low back pain (principal); I50.9 Heart failure, unspecified; I11.0 Hypertensive heart disease with heart failure; Z86.73 Personal history of transient ischemic attack (TIA), and cerebral infarction without residual deficits; Z48.812 Encounter for surgical aftercare following surgery on the circulatory system; Z91.013 Allergy to seafood
CPT/HCPCS: 36415; Q0092